=== PATIENT | female | born 1955 | race Caucasian/White ===

== ENCOUNTER 2022-02-25 11:58 | Emergency (ER) | payer OTHER, SELFPAY ==
[2022-02-25] VITALS (9 sets, daily range): BP systolic 130–182; BP diastolic 65–91; PULSE 71–147; RESP 18–23; TEMP 36.6; O2SAT 95–98; BMI 55.7
--- NOTE | 2022-02-25 12:19 | DI.RAD.S_ITS ---
PROCEDURE: XR CHEST 1V INDICATIONS: chest pain TECHNIQUE: One view of the chest was acquired. COMPARISON: None. FINDINGS: Surgical changes and devices: Wireless pacer. Lungs and pleura: Lungs are clear. No pleural effusions or pneumothorax. Mediastinum: Mediastinal contours appear normal. Heart size is normal. Bones and chest wall: No suspicious bony lesions. Overlying soft tissues appear unremarkable. IMPRESSION: No acute pulmonary process. Dictated by: Ofelia Reardon M.D. on 02/25/2022 at 12:56 Approved by: Ofelia Reardon M.D. on 02/25/2022 at 12:57
[2022-02-25 12:46] LABS: Alanine Aminotransferase 32 IU/L (<35); Albumin 4.3 g/dL (3.5-5.0); Albumin Globulin Ratio 1.3 (1.0-2.8); Alkaline Phosphatase 68 U/L (38-126); Aspartate Aminotransferase 33 IU/L (14-36); Bilirubin Total 0.7 mg/dL (0.2-1.3); Blood Urea Nitrogen 21 mg/dL (7-17); Calcium 9.2 mg/dL (8.4-10.2); Carbon Dioxide 30 mmol/L (22-32); Chloride 105 mmol/L (98-107); Creatine Kinase 110 U/L (30-135); Estimated Glomerular Filt Rate > 60 mL/min (>60); Globulin 3.2 g/dL (1.7-4.1); Glucose 137 mg/dL (80-110); HEMOLYSIS < 15 (0-50); Lipase 94 U/L (23-300); Magnesium 1.8 mg/dL (1.6-2.3); Potassium 3.4 mmol/L (3.4-5.1); Sodium 141 mmol/L (137-145); Total Protein 7.5 g/dL (6.3-8.2)
[2022-02-25] MEDS: SODIUM CHLORIDE 0.9% 1,000 ML 1000 ML IV (12:46)
[2022-02-25 12:47] LABS: Add Manual Diff / Slide Review NO; Basophils Absolute Auto 0 /uL (0-100); Basophils Percent Auto 0.8 % (0-2); Eosinophils Absolute Auto 200 /uL (0-450); Eosinophils Percent Auto 3.2 % (2-4); Hematocrit 39.2 % (36-46); Lymphocytes Absolute Auto 1500 /uL (1100-4500); Lymphocytes Percent Auto 28.7 % (25-40); Mean Corpuscular HGB Conc 33.3 % (30-36); Mean Corpuscular Hemoglobin 27.2 PG (26-34); Mean Corpuscular Volume 81.6 fL (80-100); Monocytes Absolute Auto 600 /uL (0-900); Monocytes Percent Auto 11.1 % (3-14); Neutrophils Absolute Auto 2900 /uL (1500-7000); Neutrophils Percent Auto 56.2 % (50-75); Platelet Count 174 X10^3/uL (150-400); Red Cell Distribution Width 13.5 % (11.6-14.8); White Blood Cell Count 5.1 X10^3/uL (4.5-11.0)
[2022-02-25 12:52] LABS: COVID19 -Nasal RAPID Negative (Negative)
[2022-02-25 12:58] LABS: Troponin I < 0.012 ng/mL (0.01-0.034)
[2022-02-25 13:01] LABS: CKMB % Relative Index 1.3 % (1.5-5.0); Creatine Kinase MB 1.42 ng/mL (<2.37)
--- NOTE | 2022-02-25 13:14 | PC.NURSE ---
Pt noted to be in NSR on monitor. Checked on pt, reports symptoms resolved. MD notified and repeat EKG ordered
--- NOTE | 2022-02-25 13:14 | ED.ARRPALP ---
HPI - Arrhythmia/Palpitations General Chief Complaint: Arrhythmia/Palpitations Stated Complaint: Heart went out of rhythm Time Seen by Provider: 02/25/22 12:32 Source: patient Mode of arrival: Ambulatory Limitations: no limitations History of Present Illness HPI narrative: This is a pleasant 66-year-old female with known history of a flutter and atrial fibrillation, patient is on warfarin, diltiazem, triamterene, Lasix, losartan, omeprazole, potassium supplementation, pravastatin, escitalopram and Imitrex. Patient has had an episode of atrial flutter in the past. She received Cardizem cardioverted and has been set up with follow-up with Cardiology. She is currently wearing a ZIO patch. She has had some intermittent irregular beats but today went to an irregular rhythm that was fast it did not resolve. She denies chest pain or pressure. She has some shortness of breath with exertion going up stairs but none while resting. No syncope or lightheadedness. No nausea or vomiting. No diaphoresis. Patient states that her legs have been mildly more swollen than typical. She denies any cardiac interventions or prior surgeries. No tobacco, alcohol or illicit. She lives in [facility] and is visiting the area and returning tomorrow. She has current set up with Cardiology and is supposed to see electrophysiology shortly. Related Data Home Medications Medication Instructions Recorded Confirmed diltiazem HCl 180 mg 180 mg PO DAILY 02/25/22 02/25/22 capsule,extended release 24 hr escitalopram oxalate 20 mg tablet 20 mg PO DAILY 02/25/22 02/25/22 estradiol 4 mcg vaginal insert 0 mcg VAGINAL PER PKG DIR 02/25/22 02/25/22 (Imvexxy Maintenance Pack) furosemide 20 mg tablet 40 mg PO DAILY 02/25/22 02/25/22 olmesartan 40 mg tablet 40 mg PO DAILY 02/25/22 02/25/22 omeprazole 20 mg capsule,delayed 20 mg PO DAILY 02/25/22 02/25/22 release potassium chloride 20 mEq 20 meq PO DAILY 02/25/22 02/25/22 tablet,extended release(part/cryst) (Klor-Con M) pravastatin 40 mg tablet 40 mg PO DAILY 02/25/22 02/25/22 triamterene 75 1 tab PO DAILY 02/25/22 02/25/22 mg-hydrochlorothiazide 50 mg tablet warfarin 7.5 mg tablet 7.5 mg PO DAILY 02/25/22 02/25/22 Previous Rx's Medication Instructions Recorded diltiazem HCl 180 mg capsule,24 180 mg PO DAILY #10 cap 02/25/22 hr,extended release Allergies Allergy/AdvReac Type Severity Reaction Status Date / Time No Known Drug Allergies Allergy Verified 02/25/22 12:16 Review of Systems Review of Systems ROS Unobtainable: All systems reviewed & are unremarkable except as noted in HPI and below Patient History Social History Smoking Status: Never smoker Smoking Status: Never smoker Substance Use Type: does not use Exam Narrative Exam Narrative: GENERAL: Alert and oriented x three, obese female in mild distress. HEENT: Head normocephalic, atraumatic, EOMI, pupils reactive, face symmetric, moist mucous membranes NECK: Supple, full range of motion CARDIOVASCULAR: Regular rate and rhythm without murmurs, rubs or gallops. Patient had cardioverted prior to being evaluated. No JVD. Trace edema bilaterally. RESPIRATORY: Breath sounds equal bilaterally, no wheezes rales or rhonchi. ABDOMEN: Soft, nontender. Normoactive bowel sounds all 4 quadrants. No guarding or rebound, rigidity, no mass : No CVA tenderness EXTREMITIES: Normal range of motion. Neurovascularly intact NEUROLOGICAL: Cranial nerves II through XII grossly intact. Moving all extremities SKIN: Warm, dry, no petechiae, no rashes or lesions. Initial Vital Signs Initial Vital Signs: Vital Signs Temperature 97.9 F 02/25/22 11:59 Pulse Rate 78 02/25/22 11:59 Respiratory Rate 18 02/25/22 11:59 Blood Pressure 182/81 H 02/25/22 11:59 Pulse Oximetry 98 02/25/22 11:59 Course Orders Ordered: Discontinued Medications Sodium Chloride (Normal Saline 0.9%) 1,000 mls @ 1,000 mls/hr IV BOLUS ONE Stop: 02/25/22 13:31 Last Infusion: 02/25/22 14:19 Dose: 0 mls/hr Documented by: Admin: 02/25/22 12:46 Dose: 1,000 mls/hr Documented by: KAIA Reevaluation(s) Reevaluation #1: Patient continues to be in sinus rhythm. INR is 1.5. She actually had her INR increased recently but missed a dose yesterday. She took 7.5 mg this morning I asked her take an additional 7.5 mg this evening and then resume her new dose of 7.5 mg daily. This was just increased several days ago. Patient was given a short-term prescription for diltiazem so she may take an extra dose if needed she only has 1 tablet with her. Time: 14:14 Vital Signs Vital signs: Vital Signs - 8 hr 02/25/22 11:59 02/25/22 12:07 02/25/22 12:14 Temperature 97.9 F Pulse Rate 78 88 Respiratory Rate 18 Blood Pressure 182/81 H 182/81 H Pulse Oximetry 98 97 02/25/22 12:30 02/25/22 12:52 02/25/22 13:00 Temperature Pulse Rate 136 H 147 H 80 Respiratory Rate 22 23 Blood Pressure 140/91 H 134/80 137/84 Pulse Oximetry 96 96 96 02/25/22 13:37 Temperature Pulse Rate 78 Respiratory Rate 19 Blood Pressure Pulse Oximetry 96 MDM - Arrhythmia/Palpitations Lab Data Result diagrams: 02/25/22 12:12 02/25/22 12:12 Labs: Lab Results 02/25/22 02/25/22 02/25/22 Range/Units 12:12 12:12 12:12 WBC 5.1 (4.5-11.0) X10^3/uL RBC 4.80 (4.0-5.2) X10^6/uL Hgb 13.0 (12.0-16.0) g/dL Hct 39.2 (36-46) % MCV 81.6 (80-100) fL MCH 27.2 (26-34) PG MCHC 33.3 (30-36) % RDW 13.5 (11.6-14.8) % Plt Count 174 (150-400) X10^3/uL Neut % (Auto) 56.2 (50-75) % Lymph % (Auto) 28.7 (25-40) % [place] % (Auto) 11.1 (3-14) % Eos % (Auto) 3.2 (2-4) % Baso % (Auto) 0.8 (0-2) % Neut # (Auto) 2900 (7889-9259) /uL Lymph # (Auto) 1500 (1316-6455) /uL [place] # (Auto) 600 (0-900) /uL Eos # (Auto) 200 (0-450) /uL Baso # (Auto) 0 (0-100) /uL PT (10.1-12.7) SECONDS INR (0.9-1.3) Sodium 141 (137-145) mmol/L Potassium 3.4 (3.4-5.1) mmol/L Chloride 105 (98-107) mmol/L Carbon Dioxide 30 (22-32) mmol/L BUN 21 H (7-17) mg/dL Creatinine 0.70 (0.52-1.04) mg/dL Estimated GFR > 60 (>60) mL/min BUN/Creatinine Ratio 30.0 H (6-22) Glucose 137 H (80-110) mg/dL Calcium 9.2 (8.4-10.2) mg/dL Magnesium 1.8 (1.6-2.3) mg/dL Total Bilirubin 0.7 (0.2-1.3) mg/dL AST 33 (14-36) IU/L ALT 32 (<35) IU/L Alkaline Phosphatase 68 (38-126) U/L Total Creatine Kinase 110 (30-135) U/L CK-MB (CK-2) 1.42 (<2.37) ng/mL CK-MB (CK-2) Rel Index 1.3 L (1.5-5.0) % Troponin I < 0.012 (0.01-0.034) ng/mL Total Protein 7.5 (6.3-8.2) g/dL Albumin 4.3 (3.5-5.0) g/dL Globulin 3.2 (1.7-4.1) g/dL Albumin/Globulin Ratio 1.3 (1.0-2.8) Lipase 94 (23-300) U/L SARS-CoV-2 (PCR) Negative (Negative) 02/25/22 Range/Units 12:15 WBC (4.5-11.0) X10^3/uL RBC (4.0-5.2) X10^6/uL Hgb (12.0-16.0) g/dL Hct (36-46) % MCV (80-100) fL MCH (26-34) PG MCHC (30-36) % RDW (11.6-14.8) % Plt Count (150-400) X10^3/uL Neut % (Auto) (50-75) % Lymph % (Auto) (25-40) % [place] % (Auto) (3-14) % Eos % (Auto) (2-4) % Baso % (Auto) (0-2) % Neut # (Auto) (5131-8141) /uL Lymph # (Auto) (7467-1146) /uL [place] # (Auto) (0-900) /uL Eos # (Auto) (0-450) /uL Baso # (Auto) (0-100) /uL PT 17.2 H (10.1-12.7) SECONDS INR 1.5 H (0.9-1.3) Sodium (137-145) mmol/L Potassium (3.4-5.1) mmol/L Chloride (98-107) mmol/L Carbon Dioxide (22-32) mmol/L BUN (7-17) mg/dL Creatinine (0.52-1.04) mg/dL Estimated GFR (>60) mL/min BUN/Creatinine Ratio (6-22) Glucose (80-110) mg/dL Calcium (8.4-10.2) mg/dL Magnesium (1.6-2.3) mg/dL Total Bilirubin (0.2-1.3) mg/dL AST (14-36) IU/L ALT (<35) IU/L Alkaline Phosphatase (38-126) U/L Total Creatine Kinase (30-135) U/L CK-MB (CK-2) (<2.37) ng/mL CK-MB (CK-2) Rel Index (1.5-5.0) % Troponin I (0.01-0.034) ng/mL Total Protein (6.3-8.2) g/dL Albumin (3.5-5.0) g/dL Globulin (1.7-4.1) g/dL Albumin/Globulin Ratio (1.0-2.8) Lipase (23-300) U/L SARS-CoV-2 (PCR) (Negative) Imaging Data Chest x-ray: My Impression: nap. Radiologist's Impresson: [address] [address] XRay Report Signed Patient: Yolis Hines MR#: [id number] : 1955 Acct:[id number] Age/Sex: 66 / F Date of Service: 02/25/22 Loc: ED Accession Number: [id number] ?? Procedure: XR chest 1V Ordering Provider: Puja Irwin D.O. PROCEDURE:? XR CHEST 1V ? INDICATIONS:? chest pain ? TECHNIQUE:? One view of the chest was acquired.? ? COMPARISON:? None. ? FINDINGS:? ? Surgical changes and devices:? Wireless pacer. ? Lungs and pleura:? Lungs are clear.? No pleural effusions or pneumothorax.? ? Mediastinum:? Mediastinal contours appear normal.? Heart size is normal.? ? Bones and chest wall:? No suspicious bony lesions.? Overlying soft tissues appear unremarkable.? ? IMPRESSION:? No acute pulmonary process. ? ? Dictated by: Ofelia Reardon M.D. on 02/25/2022 at 12:56 ? ? Approved by: Ofelia Reardon M.D. on 02/25/2022 at 12:57?? ECG Data Attestation: I personally reviewed and interpreted this ECG as follows: Prior ECG tracings: not available for review Interpretation: EKG 1.AFib with rapid ventricular response, rate 149 QRS of [address] acute [address] elevation depression. EKG 2. Patient has sinus rhythm rate of 80, CA 158 QRS of 96 QTC 42[address] No acute ST elevation or depression noted. MDM Narrative Medical decision making narrative: This is a pleasant 66-year-old female with known AFib/flutter who presents today in AFib RVR. Patient cardioverted on her own with small amount of fluid no additional interventions. Patient is in a sinus rhythm. No prior EKGs for comparison but no major changes. No chest pain, negative troponin with no major electrolyte abnormalities. BUN slightly elevated, COVID is negative. Chest x-ray is not appreciated have major change. INR is subtherapeutic, she states it was low several days ago they just recently increased her Coumadin to 7.5 mg but she missed a dose last night, she took a dose this morning was encouraged to take an additional dose this evening and then returned to her newly elevated dose of 7.5 mg and will have recheck this week. 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 At this time I would defer adjusting her medications but discussed she can take 1 additional dose of her diltiazem if she has recurrence. Discharge Plan Departure Patient Disposition: Home Clinical Impression: Atrial fibrillation with rapid ventricular response Instructions: DI for Atrial Fibrillation Activity Restrictions/Additional Instructions: Follow-up with your cardiology team this week. Call Sunday morning or Sunday if they are unavailable to set up follow-up or telephone visit. Your INR is 1.5 today, take a dose of warfarin this evening, 7.5 mg and then resume your normal dosing tomorrow. Continue your Lasix as prescribed. You can take 1 dose today extra, and then resume her regular schedule tomorrow. Please continue your home medications as prescribed. If you have additional frequent episodes you may take 1 additional dose of your diltiazem. If your symptoms are persisting please go to the nearest emergency department. Please return for new or worsening symptoms, persistent elevated heart rate, chest pain, shortness of breath, passing out or lightheadedness, new swelling or other new or concerning symptoms. Prescriptions: New diltiazem HCl 180 mg capsule,extended release 24 hr 180 mg PO DAILY Qty: 10 0RF No Action pravastatin 40 mg Tablet 40 mg PO DAILY 0RF diltiazem HCl 180 mg Capsule,Extended Release 24hr 180 mg PO DAILY 0RF warfarin [Coumadin] 7.5 mg Tablet 7.5 mg PO DAILY 0RF potassium chloride [Klor-Con M20] 20 mEq Tablet,Er Particles/Crystals 20 meq PO DAILY 0RF omeprazole 20 mg Capsule,Delayed Release(Dr/Ec) 20 mg PO DAILY 0RF furosemide 20 mg Tablet 40 mg PO DAILY 0RF triamterene-hydrochlorothiazid 75-50 mg Tablet 1 tab PO DAILY 0RF olmesartan 40 mg Tablet 40 mg PO DAILY 0RF escitalopram oxalate 20 mg Tablet 20 mg PO DAILY 0RF Imvexxy Maintenance Pack 4 mcg Insert 0 mcg VAGINAL PER PKG DIR 0RF Referrals: Miscellaneous,Doctor, [Primary Care Provider] -
[2022-02-25 13:31] LABS: INR 1.5 (0.9-1.3); Prothrombin Time 17.2 SECONDS (10.1-12.7)
== END 2022-02-25 14:28 | disposition home or self-care (01) ==
PROVIDERS: Emergency Provider Emergency Medicine
DX: I48.91 Unspecified atrial fibrillation (principal); R07.9 Chest pain, unspecified; Z79.01 Long term (current) use of anticoagulants; Z20.822 Contact with and (suspected) exposure to COVID-19
CPT/HCPCS: 36415; 71045; 80053; 82550; 82553; 83690; 83735; 84484; 85025; 85610; 87635; 93005; 99284; C9803